=== PATIENT | male | born 1955 | race Caucasian/White ===

== ENCOUNTER 2019-12-15 21:16 | Emergency (ER) | payer BC ==
[2019-12-15] MEDS ORDERED: HYDROmorphone 2 MG/ML SDV IM ONE (21:35)
[2019-12-15] MEDS: HYDROmorphone 2 MG/ML SDV ONE ×2 (21:55→22:23)
[2019-12-15] MEDS ORDERED: Diphtheria,Pertussis(Acell),Tetanus Vaccine 0.5 ML SDV IM ONE (22:12)
--- NOTE | 2019-12-15 22:21 | EDM.PDOC ---
ED HPI GENERAL MEDICAL PROBLEM - General Chief Complaint: Upper Extremity Injury/Pain Stated Complaint: lac to finger Time Seen by Provider: 12/15/19 21:20 Source of Information: Reports: Patient History Limitations: Reports: No Limitations - History of Present Illness INITIAL COMMENTS - FREE TEXT/NARRATIVE: Patient is a 64 year old male who started [place] and reached doen with his hand to remove plastic shield and got his finger caught by chainsaw blade. Suffered lacerations to all fingers on left hand other than his fifth finger. Worst laceration i to the middle finge just proximal to DI joint on palmar urface of finger with exposure of flexor tendon proximal to joint and lack of sensation to distal fingertip. Patient is right handed Onset: Today Onset Date: 12/15/19 Onset Time: 20:45 Location: Reports: Upper Extremity, Right (Right hand fingers) Quality: Reports: Sharp Severity: Moderate - Related Data Allergies Allergy/AdvReac Type Severity Reaction Status Date / Time No Known Allergies Allergy Verified 12/15/19 22:01 Review of Systems - Review of Systems Review Of Systems: See Below Constitutional: Reports: No Symptoms Respiratory: Reports: No Symptoms GI/Abdominal: Reports: No Symptoms Skin: Reports: Other (Lacerations to skin of right hand fingers except right 5th finger) ED EXAM, GENERAL - Physical Exam Exam: See Below Exam Limited By: No Limitations General Appearance: Alert, WD/WN, Anxious, Mild Distress Head: Atraumatic Neck: Normal Inspection Respiratory/Chest: No Respiratory Distress Extremities: Other (Lacerations to palmar surface of thumb and 2nd third and fourth finger which are jagged, no obious bone involvement. Loss of sensation to distal aspect of middle fingertip distal to proximal aspect of DIP joint of right 3rd figer with exposed flexor tendon. Thumb with tissue missing from jagged laceratio toproximal surface of thumb ) Neurological: Alert, Oriented, Normal Cognition, Normal Gait, Other (Loss of sensation to distal fingerpad of right middle finger) Psychiatric: Normal Affect Skin Exam: Warm, Dry, Other (as per above description of extremeties) Course - Vital Signs Last Recorded V/S: Last Vital Signs Temp 98.1 F 12/15/19 21:39 Pulse 32 L 12/15/19 21:39 Resp 16 12/15/19 21:39 BP 134/102 H 12/15/19 21:39 Pulse Ox 95 12/15/19 21:39 - Orders/Labs/Meds Orders: Active Orders 24 hr Category Date Time Status Vaccines to be Administered [RC] PER UNIT ROUTINE Care 12/15/19 22:12 Active Meds: Medications Discontinued Medications Generic Name Dose Route Start Last Admin Trade Name Dinorah PRN Reason Stop Dose Admin Diphtheria/Tetanus/Acell Pertussis 0.5 ml 12/15/19 22:12 12/15/19 21:35 Boostrix IM 12/15/19 22:13 0.5 ml .ONCE ONE Administration Hydromorphone HCl Confirm 12/15/19 22:02 12/15/19 22:23 Dilaudid Administered 12/15/19 22:03 Not Given Dose 2 mg .ROUTE .STK-MED ONE Hydromorphone HCl 2 mg 12/15/19 21:35 12/15/19 22:22 Dilaudid IM 12/15/19 21:36 2 mg ONETIME ONE Administration - Radiology Interpretation Free Text/Narrative:: Wounds with moistened and covered with saline soaked 4x 4 ' with loose bulky dressing applied to right hand and hand placed in sling Tetanus immunization was updated Call to [facility] and orthopedist recommended that patietn be transferred to larger center if soft tissue transfer or nerve repair might be necessary. Therefor [facility] in [facility] ED contacted and Dr. Redman and accepted patient in transfer to [place]. Explained to patient that he will be evaluated by ED physicians there and they will consult hand surgeon as they feel appropriate. Transfer via private car with son driving patient. Patient was giveof Dilaudid prior transfer to [place] by private car Departure - Departure Time of Disposition: 22:05 Disposition: DC/Tfer to Acute Hospital 02 Condition: Good, Poor Clinical Impression: Laceration of right index finger Qualifiers: Encounter type: initial encounter Damage to nail status: without damage Foreign body presence: without foreign body Qualified Code(s): S61.210A - Laceration without foreign body of right index finger without damage to nail, initial encounter Laceration of thumb, right Qualifiers: Encounter type: initial encounter Damage to nail status: without damage Foreign body presence: without foreign body Qualified Code(s): S61.011A - Laceration without foreign body of right thumb without damage to nail, initial encounter Laceration of middle finger with tendon involvement Qualifiers: Encounter type: initial encounter Qualified Code(s): S61.218A - Laceration without foreign body of other finger without damage to nail, initial encounter Laceration of right ring finger with foreign body without damage to nail Qualifiers: Encounter type: initial encounter Qualified Code(s): S61.224A - Laceration with foreign body of right ring finger without damage to nail, initial encounter - Discharge Information *PRESCRIPTION DRUG MONITORING PROGRAM REVIEWED*: No *COPY OF PRESCRIPTION DRUG MONITORING REPORT IN PATIENT IDA: Not Applicable Instructions: Diphtheria Toxoid; Tetanus Toxoid Adsorbed, DT, Td Referrals: PCP,None [Primary Care Provider] - Forms: ED Department Discharge, Interfacility Transfer EMTALA Additional Instructions: No eating or drinking on the way to Hospital Wear sling Keep bandage in place Wet with NS as needed Go directly to ER Sepsis Event Note - Evaluation Sepsis Screening Result: No Definite Risk - Focused Exam Vital Signs: Vital Signs Temp Pulse Resp BP Pulse Ox 12/15/19 21:39 98.1 F 32 L 16 134/102 H 95 Date Exam was Performed: 12/15/19 Time Exam was Performed: 22:31 - My Orders Last 24 Hours: My Active Orders 12/15/19 22:12 Vaccines to be Administered [RC] PER UNIT ROUTINE - Assessment/Plan Last 24 Hours: My Active Orders 12/15/19 22:12 Vaccines to be Administered [RC] PER UNIT ROUTINE
== END 2019-12-15 22:05 ==
LOC: LB.ED 21:16
DX: S56.123A Laceration of flexor muscle, fascia and tendon of right middle finger at forearm level, initial encounter (principal); S61.210A Laceration without foreign body of right index finger without damage to nail, initial encounter; S61.011A Laceration without foreign body of right thumb without damage to nail, initial encounter; S61.224A Laceration with foreign body of right ring finger without damage to nail, initial encounter; Z23 Encounter for immunization; W29.3XXA Contact with powered garden and outdoor hand tools and machinery, initial encounter
CPT/HCPCS: 90471; 90715; 96372; 99284; J1170